=== PATIENT | male | born 1970 | race Caucasian/White ===

== ENCOUNTER 2025-01-22 08:47 | Emergency (ER) | payer OTHER ==
[~2025-01-22] VITALS: Ht 177.8 cm; Wt 86.2 kg
[2025-01-22] MEDS ORDERED: LOSA50 PO (09:05)
[2025-01-22] MEDS ORDERED: BUPROPION XL450 MG PO (09:06)
[2025-01-22] MEDS ORDERED: OXYC5 PO (11:27)
[2025-01-22] MEDS ORDERED: OxyCODONE 5 mg/Acetamin 325 mg TABLET PO ONE (11:30)
== END 2025-01-22 11:36 | disposition home or self-care (01) ==
LOC: ER 08:47
DX: S40.011A Contusion of right shoulder, initial encounter (principal); S60.211A Contusion of right wrist, initial encounter; S80.01XA Contusion of right knee, initial encounter; S90.01XA Contusion of right ankle, initial encounter; V28.49XA Other motorcycle driver injured in noncollision transport accident in traffic accident, initial encounter
CPT/HCPCS: 73030; 73110; 73562-RT; 73610; 99284-25; A9270